=== PATIENT | female | born 1955 | race Hispanic/Latino ===

== ENCOUNTER 2023-12-22 07:01 | Observation (INO) | payer MEDICARE ==
[2023-12-16 15:40] LABS: BASOPHILS # (AUTO) 0.04 K/uL (0.00-0.20); BASOPHILS % (AUTO) 0.7 % (0.0-5.0); EOSINOPHILS # (AUTO) 0.08 K/uL (0.00-0.70); EOSINOPHILS % (AUTO) 1.4 % (0.0-8.0); HEMATOCRIT 43.8 % (36-48); IMMATURE GRANULOCYTE ABSOLUTE 0.02 K/uL (0-1); LYMPHOCYTES # (AUTO) 2.2 K/uL (1.0-4.8); LYMPHOCYTES % (AUTO) 37.9 % (21.0-51.0); MEAN CORPUSCULAR HGB CONC 33.3 g/dL (32.0-36.0); MEAN CORPUSCULAR VOLUME 89.9 fL (79-99); MONOCYTES # (AUTO) 0.4 K/uL (0.1-1.0); MONOCYTES % (AUTO) 7.3 % (3.0-13.0); NEUTROPHILS # (AUTO) 3.1 K/uL (1.8-7.7); NEUTROPHILS % (AUTO) 52.4 % (40.0-77.0); PLATELET COUNT (AUTO) 176 K/uL (130-400); RED BLOOD CELL COUNT(AUTO) 4.87 MIL/uL (4.00-5.50); WHITE BLOOD COUNT (AUTO) 5.9 K/uL (4.8-10.8)
[2023-12-16 15:57] LABS: ALBUMIN 3.7 g/dL (3.5-5.0); CREATININE 0.8 mg/dL (0.5-1.0); POTASSIUM 3.6 mmol/L (3.5-5.1)
[2023-12-16 16:03] LABS: INR 1.06 (0.85-1.15); PROTHROMBIN TIME 11.4 SEC (9.6-11.6)
[2023-12-16 16:04] LABS: PARTIAL THROMBOPLASTIN TIME 27.5 SEC (26.3-35.5)
[2023-12-16 16:10] VITALS: BP 140/72; PULSE 53; RESP 18
[2023-12-16 16:30] LABS: APPEARANCE,URINE CLEAR (CLEAR); BILIRUBIN,URINE NEGATIVE (NEGATIVE); COLOR,URINE COLORLESS (YELLOW); GLUCOSE, URINE (UA) NEGATIVE (NEGATIVE); KETONES,URINE NEGATIVE (NEGATIVE); LEUKOCYTE ESTERASE ,URINE NEGATIVE Leu/uL (NEGATIVE); NITRATE,URINE NEGATIVE (NEGATIVE); OCCULT BLOOD,URINE SMALL (NEGATIVE); PROTEIN,URINE NEGATIVE (NEGATIVE); UROBILINOGEN,URINE 0.2 mg/dL (0.2-1.0)
[2023-12-16 16:32] LABS: ADD UA MICROSCOPIC YES
[2023-12-16 16:34] LABS: WBC,URINE 0-1 /HPF (0-1)
[2023-12-22] VITALS (31 sets, daily range): BP systolic 107–158; BP diastolic 47–91; PULSE 54–75; RESP 9–21; O2SAT 94
[~2023-12-22] VITALS: Ht 157.5 cm; Wt 75.9 kg
[~2023-12-22 07:01] MED LIST: ANAS1TAB49 PO; CITA-107 PO; DEXAMETHASONE SOD PHOSPHATE 10MG/ML 1ML VIAL ONE; DOXY100T2 PO; FENTANYL CITRATE PF 50 MCG/1 ML 2ML VIAL ONE; GABA300C PO; GLYCOPYRROLATE 0.2 MG/ML 5 ML VIAL ONE; LEVO88CA4 PO; LIDOCAINE PF 100MG/5ML (2%) SYRINGE 5ML ONE; LIFI1DRO OP; MAGNESIUM PO; MIDAZOLAM HCL 1 MG/ML 2ML VIAL ONE; NAPR220T57 PO; NEOSTIGMINE METHYLSULFATE 1MG/ML IV ONE; ONDANSETRON 4MG INJ ONE; PROPOFOL 10 MG/ML 20ML VIAL IV ONE; ROCURONIUM BROMIDE 10MG/1ML 5ML VL ONE; ROPIVACAINE 0.5% 5MG/ML 30ML ONE; ROSU20TA73 PO; SUCCINYLCHOLINE CHLORIDE 20 MG/ML 10 ML VIAL ONE; TIRZ7.5P SQ; VITAMIN C PO; VITAMIN D PO; VITAMIN E PO; ZINC PO
[2023-12-22] MEDS: CEFAZOLIN SODIUM 2 GM VIAL ONE (08:01)
[2023-12-22] MEDS: 0.9%NACL 1000ML 1,000 ML IV ONE (08:01)
[2023-12-22] MEDS ORDERED: FENTANYL CITRATE PF 50 MCG/1 ML 2ML VIAL ONE (08:20)
[2023-12-22] MEDS ORDERED: ROCURONIUM BROMIDE 10MG/1ML 5ML VL ONE (08:20)
[2023-12-22] MEDS ORDERED: ARTIFICIAL TEARS 3.5 GM OINTMENT ONE (09:01)
[2023-12-22] MEDS ORDERED: PHENYLEPHRINE HCL 10 MG/ML 1ML VIAL IV ONE (10:13)
[2023-12-22] MEDS ORDERED: POTASSIUM CHLORIDE 10% ELIXIR 20 MEQ/15 ML UDCUP PO PRN (10:30)
[2023-12-22] MEDS ORDERED: ONDANSETRON 4MG INJ IVP PRN (10:30)
[2023-12-22] MEDS ORDERED: KETOROLAC 15MG/ML VIAL (15MG/ML) IV PRN (10:30)
[2023-12-22] MEDS ORDERED: CALCIUM CARB 500MG PO PRN (10:30)
[2023-12-22] MEDS ORDERED: POTASSIUM CHLORIDE 20MEQ/100ML 100 ML IV PRN (10:30)
[2023-12-22] MEDS ORDERED: TRAMADOL HCL 50 MG TABLET PO PRN (10:30)
[2023-12-22] MEDS ORDERED: FE FUMARATE/FA/MV, MIN COMB#15 1 TAB PO PRN (10:30)
[2023-12-22] MEDS: SUGAMMADEX SODIUM 200 MG/2 ML VIAL IV ONE (11:03)
[2023-12-22] MEDS: INSULIN HUMULIN R 100 UNIT/ML 3ML SQ SCH (11:30)
[2023-12-22] MEDS: TRAMADOL HCL 50 MG TABLET ONE (13:11)
[2023-12-22] MEDS: HYDROCODONE/ACETAMINOPHEN 10/325 MG TAB ONE (13:17)
[2023-12-22] MEDS ORDERED: TIRZEPATIDE 7.5 MG SQ SCH (18:30)
[2023-12-22] MEDS: KETOROLAC 15MG/ML VIAL (15MG/ML) IV SCH (18:30)
[2023-12-22] MEDS: CEFAZOLIN SODIUM 2 GM VIAL IVPB SCH (19:00)
[2023-12-22] MEDS: DOCUSATE SODIUM 100 MG CAP PO SCH (20:05)
[2023-12-22] MEDS: MAGNESIUM OXIDE 400 MG TABLET PO SCH (20:05)
[2023-12-22] MEDS: CITALOPRAM 20 MG TABLET PO SCH (20:06)
[2023-12-22] MEDS: GABAPENTIN 300 MG CAPSULE PO SCH (20:06)
[2023-12-22] MEDS: ATORVASTATIN 40 MG TABLET PO SCH (20:08)
[2023-12-22] MEDS: 0.9%NACL 1000ML 1,000 ML IV SCH (20:09)
[2023-12-22] MEDS: ANASTROZOLE 1 MG PO SCH (20:19)
[2023-12-22] MEDS: LIFITEGRAST OP SCH (20:19)
[2023-12-22] MEDS ORDERED: NON-FORMULARY MEDICATION 1 EACH (Rosuvastatin Calcium 20 MG) PO SCH (21:00)
[2023-12-23] VITALS: BP 125/53; PULSE 48; RESP 17
[2023-12-23] MEDS: CYCLOBENZAPRINE HCL 10 MG TABLET PO PRN (00:25)
[2023-12-23] MEDS: HYDROCODONE/ACETAMINOPHEN 5/325 MG TAB PO PRN (00:32)
[2023-12-23] MEDS: CEFAZOLIN SODIUM 2 GM VIAL ONE (03:00)
[2023-12-23 04:52] LABS: HEMATOCRIT 35.5 % (36-48); MEAN CORPUSCULAR HEMOGLOBIN 29.8 pg (27.0-33.0); MEAN CORPUSCULAR HGB CONC 33.5 g/dL (32.0-36.0); RED BLOOD CELL COUNT(AUTO) 3.99 MIL/uL (4.00-5.50); RED CELL DISTRIBUTION WIDTH 13.2 % (11.0-15.5); WHITE BLOOD COUNT (AUTO) 10.2 K/uL (4.8-10.8)
[2023-12-23 05:23] LABS: CREATININE 0.7 mg/dL (0.5-1.0); POTASSIUM 3.7 mmol/L (3.5-5.1)
[2023-12-23] MEDS: LEVOTHYROXINE 88 MCG TABLET PO SCH (05:53)
[2023-12-23] MEDS: KCL 20 MEQ ERTAB PO PRN (05:53)
[2023-12-23 08:00] VITALS: BP 142/76; PULSE 54; RESP 18; O2SAT 96
[2023-12-23] MEDS: ZINC SULFATE 220 CAPSULE PO SCH (08:41)
[2023-12-23] MEDS: POLYETHYLENE GLYCOL 3350 17 GM POWD.PACK PO SCH (08:41)
[2023-12-23] MEDS: VITAMIN E 400 UNIT CAPSULE PO SCH (08:41)
[2023-12-23] MEDS: ASCORBIC ACID 500 MG TAB PO SCH (08:41)
[2023-12-23] MEDS: DOXYCYCLINE HYCLATE 100 MG TABLET PO SCH (08:41)
[2023-12-23] MEDS ORDERED: NON-FORMULARY MEDICATION 1 EACH (Levothyroxine Sodium (Levothyroxine) 88 MCG) PO SCH (09:00)
[2023-12-23 11:57] VITALS: BP 157/93; PULSE 62; RESP 18
[2023-12-23] MEDS ORDERED: ASPI-1012 PO (15:49)
[2023-12-23] MEDS ORDERED: HYDR-4060 PO (15:49)
[2023-12-23] MEDS ORDERED: DOCU-116 PO (15:49)
[2023-12-23] MEDS ORDERED: CYCL-309 PO (15:49)
[2023-12-25] MEDS ORDERED: BISACODYL 10 MG SUPP.RECT RC PRN (10:30)
== END 2023-12-23 17:25 | disposition home or self-care (01) ==
LOC: DAH 07:01 → DAHIP 07:02 → 4CH 13:50
PROVIDERS: ADMIT Student in an Organized Health Care Education/Training Program; ATTEND Student in an Organized Health Care Education/Training Program
DX: M19.011 Primary osteoarthritis, right shoulder (principal); D62 Acute posthemorrhagic anemia; G89.18 Other acute postprocedural pain; E11.9 Type 2 diabetes mellitus without complications; E03.9 Hypothyroidism, unspecified; E78.5 Hyperlipidemia, unspecified; G47.33 Obstructive sleep apnea (adult) (pediatric); Z85.3 Personal history of malignant neoplasm of breast; Z88.0 Allergy status to penicillin; Z79.899 Other long term (current) drug therapy
CPT/HCPCS: 82040; 80048 ×2; 85025; 85610; 85730; 87086; 84134; 86140; 81001; 36415 ×2; 93005; 87641; 23472; 64415; 96365; 96375; 82948 ×6; 73020; 73030; 97161; 97116 ×3; 97530 ×4; 96376; 85027; G0378 ×26; A4663; J7030 ×2; A4565; C1776; J3010 ×2; J1100; J0330; J3490 ×3; J2001; J2250; J2704; J2405; J2710; J2795; J1885 ×2; J2371; J0690 ×3; G0168; A4930 ×2; C1713; A6254; A5120; A4215; A4223; A4222; A4221; A4600

== ENCOUNTER 2025-02-12 08:21 | Observation (INO) | payer MEDICARE ==
[2025-02-08 11:38] LABS: IMMATURE GRANULOCYTE ABSOLUTE 0.01 K/uL (0-1); NUCLEATED RED BLOOD CELLS 0.0 % (0.0-0.19); PLATELET COUNT (AUTO) 163 K/uL (130-400); RED BLOOD CELL COUNT(AUTO) 4.81 MIL/uL (4.00-5.50); RED CELL DISTRIBUTION WIDTH 13.7 % (11.0-15.5); WHITE BLOOD COUNT (AUTO) 6.3 K/uL (4.8-10.8)
[2025-02-08 11:52] LABS: CREATININE 0.8 mg/dL (0.5-1.0); GLOMERULAR FILTR. RATE CALC 79 mL/min (>90); GLUCOSE,RANDOM 94 mg/dL (70-105); SODIUM SERUM 143 mmol/L (136-145); UREA NITROGEN, BLOOD 15 mg/dL (7-18)
[2025-02-08 12:00] LABS: INR 1.05 (0.85-1.15)
[2025-02-08 12:07] VITALS: BP 156/62; PULSE 50; RESP 14; TEMP 98.3
--- NOTE | 2025-02-08 12:30 | NUR ---
RE: IS INITIAL IS INITIAL DONE BY RT MAGED DURING PREOP.
[2025-02-12] VITALS (27 sets, daily range): BP systolic 99–137; BP diastolic 48–72; PULSE 51–79; RESP 12–20; TEMP 97.5–98.2; O2SAT 93–98
[~2025-02-12] VITALS: Ht 157.5 cm; Wt 73.0 kg
[~2025-02-12 08:21] MED LIST changes: -ANAS1TAB49 PO; +ASPI-1443 PO; +CELE200C3 PO; -DEXAMETHASONE SOD PHOSPHATE 10MG/ML 1ML VIAL ONE; +DONE5TAB33 PO; +DOXY100C5 PO; -DOXY100T2 PO; -FENTANYL CITRATE PF 50 MCG/1 ML 2ML VIAL ONE; -GLYCOPYRROLATE 0.2 MG/ML 5 ML VIAL ONE; +LEVO75TA10 PO; -LEVO88CA4 PO; -LIDOCAINE PF 100MG/5ML (2%) SYRINGE 5ML ONE; -LIFI1DRO OP; +LIFI1DRO5 OU; -MAGNESIUM PO; -MIDAZOLAM HCL 1 MG/ML 2ML VIAL ONE; -NAPR220T57 PO; -NEOSTIGMINE METHYLSULFATE 1MG/ML IV ONE; -ONDANSETRON 4MG INJ ONE; -PROPOFOL 10 MG/ML 20ML VIAL IV ONE; -ROCURONIUM BROMIDE 10MG/1ML 5ML VL ONE; -ROPIVACAINE 0.5% 5MG/ML 30ML ONE; -ROSU20TA73 PO; +ROSU20TA98 PO; -SUCCINYLCHOLINE CHLORIDE 20 MG/ML 10 ML VIAL ONE; -VITAMIN C PO; -VITAMIN D PO; -VITAMIN E PO; -ZINC PO
[2025-02-12] MEDS ORDERED: LIDOCAINE PF 100MG/5ML (2%) SYRINGE 5ML ONE (10:35)
[2025-02-12] MEDS ORDERED: MIDAZOLAM HCL 1 MG/ML 2ML VIAL ONE (10:36)
[2025-02-12] MEDS ORDERED: GLYCOPYRROLATE 0.2 MG/ML 5 ML VIAL ONE (10:59)
[2025-02-12] MEDS ORDERED: HYDROcodone/APAP 5/325 1 TAB TABLET PO PRN (11:30)
[2025-02-12] MEDS ORDERED: PoTASSium chl 10% ELIXIR 20MEQ 20 MEQ/15 ML UDCUP PO PRN (11:30)
[2025-02-12] MEDS ORDERED: FERROUS FUMARATE 324 MG TABLET PO PRN (11:30)
[2025-02-12] MEDS ORDERED: PoTASSium chloRIDE 20MEQ ER 20 MEQ ERTAB PO PRN (11:30)
[2025-02-12] MEDS ORDERED: CALCIUM CARB 500MG PO PRN (11:30)
[2025-02-12] MEDS ORDERED: TRANEXAMIC ACID 1000MG/10ML ONE (11:32)
--- NOTE | 2025-02-12 11:43 | DS ---
Discharge Summary Hospital Course Summary: The patient was admitted to the hospital postoperatively on 02/12/2025 after undergoing right total hip arthroplasty. They did well with routine postoperative pain control. They worked well with physical therapy. They developed some acute blood loss anemia but remained asymptomatic. The hospital course was otherwise uncomplicated. They were subsequently able to be discharged on postoperative day [] once discharge arrangements were made with intermediate facility. Plating Foreman(s): None Procedure(s): Right total hip arthroplasty, 02/12/2025 Assessment/Plan: ASSESSMENT: Status post right total hip arthroplasty doing well Asymptomatic acute blood loss anemia PLAN: See discharge instructions Home Medications: Reported Medications Doxycycline Hyclate (Doxycycline Hyclate) 100 Mg Capsule, 100 MG PO DAILY, CAP 02/08/25 Aspirin (Aspirin EC) 81 Mg Tablet.dr, 81 MG PO DAILY, TAB 02/08/25 Donepezil HCl (Donepezil HCl) 5 Mg Tablet, 5 MG PO HS, TAB 02/08/25 Celecoxib (Celebrex) 200 Mg Capsule, 200 MG PO AD PRN for PAIN, CAP 02/08/25 Levothyroxine Sodium (Levothyroxine Sodium) 75 Mcg Tablet, 75 MCG PO ACBKFST, TAB 02/08/25 Citalopram Hydrobromide (Citalopram HBr) 20 Mg Tablet, 20 MG PO HS, TAB 12/16/23 Gabapentin (Neurontin) 300 Mg Capsule, 300 MG PO HS, CAP 12/16/23 Lifitegrast (Xiidra) 5 % Droperette, 1 DROP OU BID, DROP 12/16/23 Tirzepatide (Mounjaro) 7.5 Mg/0.5 Ml Pen.injctr, 7.5 MG SQ QWEEK Wednesday12/16/23 Rosuvastatin Calcium (Rosuvastatin Calcium) 20 Mg Tablet, 20 MG PO HS, TAB 12/16/23 Discontinued Reported Medications [Zinc] No Conflict Check, 1 TAB PO AM 12/16/23 [Vitamin C] No Conflict Check, 1 TAB PO AM 12/16/23 [Vitamin E] No Conflict Check, 1 TAB PO AM 12/16/23 [Vitamin D] No Conflict Check, 1 TAB PO AM 12/16/23 [Magnesium] No Conflict Check, 400 MG PO HS 12/16/23 Doxycycline Hyclate (Doxycycline Hyclate) 100 Mg Tablet, 100 MG PO AM, TAB 12/16/23 Levothyroxine Sodium (Levothyroxine) 88 Mcg Capsule, 88 MCG PO AM, CAP 12/16/23 Anastrozole (Arimidex) 1 Mg Tab, 1 MG PO HS, TAB 12/16/23 Discontinued Scripts Aspirin (ASPIRIN) 325 Mg Tablet, 325 MG PO DAILY for 30 Days, #30 TAB 0 Refills Prov:CHE WALTERS MD 12/23/23 Docusate Sodium (Colace) 100 Mg Capsule, 100 MG PO BID for 30 Days, #60 CAP 0 Refills Prov:CHE WALTERS MD 12/23/23 Hydrocodone/Acetaminophen (Hydrocodon-Acetaminophen 5-325) 5 Mg-325 Mg Tablet, 1-2 TAB PO Q4H PRN for MODERATE/SEVERE PAIN LEVEL, #56 TAB 0 Refills Prov:CHE WALTERS MD 12/23/23 Cyclobenzaprine HCl (Cyclobenzaprine HCl) 10 Mg Tablet, 5 MG PO Q8H PRN for MUSCLE SPASMS, #45 TAB 0 Refills Prov:CHE WALTERS MD 12/23/23 CHE WALTERS MD Feb 12, 2025 11:43
--- NOTE | 2025-02-12 13:50 | OP ---
Operative Note: DATE OF PROCEDURE: 02/12/25 SURGEON: CHE WALTERS MD PROGRAM CONTROL ANALYST: Sushant Salazar ANESTHESIA: General and fascia iliaca block ANESTHESIOLOGIST/MEDIA PLANNER / BUYER: Meeta Early CRNA PREOPERATIVE DIAGNOSIS: Right hip osteoarthritis POSTOPERATIVE DIAGNOSIS: Right hip osteoarthritis PROCEDURE: Right total hip arthroplasty ESTIMATED BLOOD LOSS: 300 cc INDICATIONS: 69-year-old female with right hip osteoarthritis failing conservative management. After discussion of the risks, benefits, and alternatives, the patient voluntarily agreed to undergo the aforementioned procedure. IMPLANTS: Early and Nephew 50 mm R3 acetabular component with 6.5 mm screws x2 and central hole cover, 0 degree XLPE polyethylene liner, size three standard offset anthology stem with a 36 mm Oxinium -3 head DESCRIPTION OF PROCEDURE: Patient was properly identified in the preoperative holding area. Surgical site marking was verified and surgery consent reviewed. The patient was then taken to the operating room and placed in supine position on the OR table. After induction of general anesthesia, preoperative antibiotics were given. The patient was then transitioned in the lateral decubitus position with the right side up. All bony prominences were well-padded. Right lower extremity was then prepped and draped in the usual sterile fashion. Surgical time out was done verifying correct surgery, side, site, and location to be performed. We then began the procedure by making approximately 15 cm long incision centered over the greater trochanter. Here we came sharply through skin down to the fascia. Hemostasis was then achieved using Bovie electrocautery. We then incised fascia in line with the skin incision and finger split the tensor muscle proximally. We then placed our Charnley retractor. At this point we identified the vastus ridge and began elevating the full-thickness soft tissue flap off of the vastus ridge, splitting the vastus lateralis and gluteus muscles as necessary. We then proceeded to externally rotate the femur while making this flap. We resected part of the anterior capsule. The femoral head and neck was then delivered into view. We then dislocated the hip and performed a femoral neck osteotomy approximately half a fingerbreadth proximal to the lesser trochanter. We then placed our retractors around the superior and anterior portion of the acetabulum and began to remove the labrum circumferentially. We then began reaming the acetabulum where we reamed up to a size 49 ensuring appropriate anteversion and abduction. We then proceeded to trial with the size 49 acetabular component and this appeared to sit well. We opened our size 50 acetabular component and after irrigating out the wound malleted this into place. It appeared to have good press-fit however we elected to place two of the 6.5 mm screws. We drilled and filled the screws in standard fashion in the posterior superior portion of the cup. We then placed the manhole cover on the center of the cup. The wound was thoroughly irrigated out further and we placed the acetabular liner and impacted this in place in standard fashion. We then proceeded to reposition our retractors to elevate the proximal femur out of the wound. We then used the box chisel and canal finder to began preparing the femoral side and sequentially broached up to the aforementioned size stem. Once we felt we had good fit, fill, and control of the femur with the stem in place we then used our trial head component and reduce the hip. Clinically the leg felt longer than the contralateral. Under fluoroscopy we appreciated that we were 3-4 mm long, so we dislocated the hip and reach trialed using the minus three head. Upon reduction, we had appropriate soft tissue tensioning, limb length and stable range of motion. We therefore dislocated the hip once more removed our trial components thoroughly irrigated the out the wound and placed our final components in standard fashion. The hip was then reduced with the final components in place. It was found to be stable through range of motion with appropriate soft tissue tensioning and appropriate limb length. At this point we placed a bump under the knee and the foot on the male with a stack of towels to allow for internal rotation. We repaired the abductors back to the greater trochanter using #5 Ethibond. We then repaired the rent in the vastus lateralis and gluteus muscles using #1 Vicryl in a running fashion. We removed our Charnley retractor and began to repair the IT band using #1 Vicryl in interrupted [id number] fashion. At this point we began to close her subcutaneous tissue using 2-0 Vicryl. Running 3-0 Monocryl in subcuticular fashion with Dermabond placed over this for the skin. Island barrier dressing was then applied. Patient was returned to supine position, awakened from anesthesia, and taken to the recovery room in stable condition. CHE WALTERS MD Feb 12, 2025 13:50
[2025-02-12] MEDS: SUGAMMADEX SODIUM 200 MG/2 ML VIAL IV ONE (15:20)
[2025-02-12] MEDS: 0.9%NACL 1000ML 1,000 ML IV ONE (15:20)
--- NOTE | 2025-02-12 15:27 | HMCIMG ---
CLINICAL INFORMATION Hip pain COMPARISON None. TECHNIQUE Single AP pelvis, single additional view of the left hip FINDINGS Bones: No acute fracture. No destructive osseous abnormality. Alignment: Normal. Joints: Total right hip arthroplasty. Moderate left hip osteoarthritis. Soft Tissues: Normal. IMPRESSION Moderate left hip osteoarthritis. Total right hip arthroplasty. /[place]
[2025-02-12] MEDS: CYCLOBENZAPRINE HCL 10 MG TABLET PO PRN (15:44)
[2025-02-12] MEDS: 0.9%NACL 1000ML 1,000 ML IV SCH (15:44)
[2025-02-12] MEDS: GABAPENTIN 300 MG CAPSULE PO SCH (20:50)
[2025-02-12] MEDS: LIFITEGRAST OU SCH (20:51)
[2025-02-13] VITALS (9 sets, daily range): BP systolic 93–152; BP diastolic 42–121; PULSE 50–101; RESP 16–20; TEMP 98–98.9; O2SAT 90–98
[2025-02-13] MEDS: HYDROcodone/APAP 5/325 1 TAB TABLET PO PRN ×2 (06:14→12:57)
[2025-02-13 06:20] LABS: NUCLEATED RED BLOOD CELLS 0.0 % (0.0-0.19); PLATELET COUNT (AUTO) 136.0 K/uL (130-400); RED BLOOD CELL COUNT(AUTO) 3.77 MIL/uL (4.00-5.50); RED CELL DISTRIBUTION WIDTH 13.7 % (11.0-15.5); WHITE BLOOD COUNT (AUTO) 10.7 K/uL (4.8-10.8)
[2025-02-13 06:26] LABS: CREATININE 0.8 mg/dL (0.5-1.0); GLOMERULAR FILTR. RATE CALC 79.0 mL/min (>90); GLUCOSE,RANDOM 117.0 mg/dL (70-105); SODIUM SERUM 139.0 mmol/L (136-145); UREA NITROGEN, BLOOD 16.0 mg/dL (7-18)
--- NOTE | 2025-02-13 08:15 | PN ---
Ortho postop day one. This morning the patient is awake alert and oriented. Seated out of bed enjoying her breakfast. She is reporting much better pain control and states that she is not feeling too much pain at this time. Vital signs have remained stable. Afebrile. Laboratory results reviewed. Noted to have a drop in hemoglobin and hematocrit as expected. Patient is currently asymptomatic we will continue to observe and address per protocol as necessary. Operative findings discussed with the patient. Voiding on her own and passing gas. Reinforced incentive spirometry. Patient dressing is intact. The gastrocnemius a soft nontender. Negative Homans. Pending physical therapy this morning. Patient is trying to be considered for [facility] rehab but I have instructed the patient that it is not likely that she will be approved since she does not have any other series comorbidities. She is going to discuss with her and we will likely agreed to therapy in the home setting. Assessment: Status post right total hip arthroplasty Acute postoperative blood loss anemia. Plan: Continue Dr. Hay protocol and discharge planning. Acute postoperative blood loss anemia addressed with the protocol Vitals/Labs Vital Signs Date Time Temp Pulse Resp B/P (MAP) Pulse Ox O2 Delivery O2 Flow Rate FiO2 02/13/25 03:20 98.2 50 16 99/51 98 CPAP 02/12/25 20:00 0 21 Laboratory Tests 02/13/25 06:07 Medications Current Medications Cefazolin Sodium 2 gm STK-MED ONCE .ROUTE; Start 02/12/25 at 09:05; Stop 02/12/25 at 09:06; Status DC Sodium Chloride 1,000 ml @ As Directed STK-MED ONCE IV; Start 02/12/25 at 09:05; Stop 02/12/25 at 09:06; Status DC Lidocaine HCl 100 mg STK-MED ONCE .ROUTE; Start 02/12/25 at 10:35; Stop 02/12/25 at 10:36; Status DC Midazolam HCl 2 mg STK-MED ONCE .ROUTE; Start 02/12/25 at 10:36; Stop 02/12/25 at 10:36; Status DC Propofol 200 mg STK-MED ONCE IV; Start 02/12/25 at 10:36; Stop 02/12/25 at 10:36; Status DC Rocuronium [place] 50 mg STK-MED ONCE .ROUTE; Start 02/12/25 at 10:36; Stop 02/12/25 at 10:37; Status DC Fentanyl Citrate 100 mcg STK-MED ONCE .ROUTE; Start 02/12/25 at 10:36; Stop 02/12/25 at 10:37; Status DC Acetaminophen 100 ml @ As Directed STK-MED ONCE .ROUTE; Start 02/12/25 at 10:39; Stop 02/12/25 at 10:40; Status DC Glycopyrrolate 1 mg STK-MED ONCE .ROUTE; Start 02/12/25 at 10:59; Stop 02/12/25 at 10:59; Status DC Ephedrine Sulfate 50 mg STK-MED ONCE .ROUTE; Start 02/12/25 at 11:20; Stop 02/12/25 at 11:20; Status DC Tranexamic Acid 1,000 mg STK-MED ONCE .ROUTE; Start 02/12/25 at 11:32; Stop 02/12/25 at 11:32; Status DC Sodium Chloride 1,000 ml @ 100 mls/hr Q10H IV Last administered on 02/12/25at 20:52; Start 02/12/25 at 11:30; Stop 02/13/25 at 11:29 Polyethylene Glycol 17 gm DAILY PO; Start 02/13/25 at 09:00; Stop 03/15/25 at 08:59 Bisacodyl 10 mg DAILY PRN RC; Start 02/15/25 at 11:30; Stop 03/17/25 at 11:29 Ketorolac Tromethamine 15 mg Q6H PRN IV; Start 02/13/25 at 11:30; Stop 02/18/25 at 11:29 Ferrous Fumarate 324 mg DAILY PRN PO; Start 02/12/25 at 11:30; Stop 03/14/25 at 11:29 Calcium Carbonate 500 mg Q12H PRN PO; Start 02/12/25 at 11:30; Stop 03/14/25 at 11:29 Ondansetron HCl 4 mg Q6H PRN IVP; Start 02/12/25 at 11:30; Stop 03/14/25 at 11:29 Cefazolin Sodium 2 gm Q8H IVPB Last administered on 02/12/25at 20:51; Start 02/12/25 at 12:30; Stop 02/12/25 at 20:31; Status DC Gabapentin 100 mg TID PO; Start 02/12/25 at 14:00; Stop 02/12/25 at 11:51; Status DC Cyclobenzaprine HCl 5 mg Q8H PRN PO Last administered on 02/12/25at 15:44; Start 02/12/25 at 11:30; Stop 03/14/25 at 11:29 Docusate Sodium 100 mg BID PO Last administered on 02/12/25at 20:51; Start 02/12/25 at 21:00; Stop 03/14/25 at 20:59 Ketorolac Tromethamine 15 mg Q8H IV Last administered on 02/13/25at 04:22; Start 02/12/25 at 11:30; Stop 02/13/25 at 03:31; Status DC Aspirin 325 mg DAILY PO; Start 02/13/25 at 09:00; Stop 03/15/25 at 08:59 Potassium Chloride 100 ml @ 100 mls/hr AD PRN IV; Start 02/12/25 at 11:30; Stop 03/14/25 at 11:29 Potassium Chloride 20 meq AD PRN PO; Start 02/12/25 at 11:30; Stop 03/14/25 at 11:29 Potassium Chloride 20 meq AD PRN PO; Start 02/12/25 at 11:30; Stop 03/14/25 at 11:29 Acetaminophen/ Hydrocodone Bitart Q4H PRN PO; Start 02/12/25 at 11:30; Stop 02/12/25 at 11:54; Status DC Citalopram Hydrobromide 20 mg HS PO Last administered on 02/12/25at 20:50; Start 02/12/25 at 21:00; Stop 03/14/25 at 20:59 Donepezil HCl 5 mg HS PO Last administered on 02/12/25at 20:50; Start 02/12/25 at 21:00; Stop 03/14/25 at 20:59 Gabapentin 300 mg HS PO Last administered on 02/12/25at 20:50; Start 02/12/25 at 21:00; Stop 03/14/25 at 20:59 Levothyroxine Sodium 75 mcg SYN PO Last administered on 02/13/25at 06:06; Start 02/13/25 at 06:30; Stop 03/15/25 at 06:29 Miscellaneous Medication 100 mg DAILY PO; Start 02/13/25 at 09:00; Stop 02/12/25 at 11:59; Status DC Home Med Lifitegrast 5% (Xiidra... BID OU; Start 02/12/25 at 21:00; Stop 03/14/25 at 20:59 Atorvastatin Calcium 80 mg HS PO Last administered on 02/12/25at 20:50; Start 02/12/25 at 21:00; Stop 03/14/25 at 20:59 Home Med 7.5 each QWEEK SQ; Start 02/19/25 at 09:00; Stop 03/21/25 at 08:59 Dexamethasone Sodium Phosphate 4 mg STK-MED ONCE .ROUTE; Start 02/12/25 at 11:41; Stop 02/12/25 at 11:41; Status DC Ondansetron HCl 4 mg STK-MED ONCE .ROUTE; Start 02/12/25 at 11:41; Stop 02/12/25 at 11:41; Status DC Acetaminophen/ Hydrocodone Bitart 1 tab Q6H PRN PO; Start 02/12/25 at 12:00; Stop 02/17/25 at 11:59 Acetaminophen/ Hydrocodone Bitart 2 tab Q6H PRN PO Last administered on 02/13/25at 06:14; Start 02/12/25 at 12:00; Stop 02/17/25 at 11:59 Rocuronium [place] 50 mg STK-MED ONCE .ROUTE; Start 02/12/25 at 11:54; Stop 02/12/25 at 11:55; Status DC Fentanyl Citrate 100 mcg STK-MED ONCE .ROUTE; Start 02/12/25 at 12:02; Stop 02/12/25 at 12:03; Status DC Cefazolin Sodium 2 gm STK-MED ONCE IVPB Last administered on 02/12/25at 11:30; Start 02/12/25 at 11:30; Stop 02/12/25 at 12:26; Status DC Tranexamic Acid 1,000 mg STK-MED ONCE IV Last administered on 02/12/25at 11:41; Start 02/12/25 at 11:41; Stop 02/12/25 at 12:26; Status DC Hydromorphone HCl 1 mg STK-MED ONCE .ROUTE Last administered on 02/12/25at 14:24; Start 02/12/25 at 14:20; Stop 02/12/25 at 14:21; Status DC TENA DUMAS NP Feb 13, 2025 08:15
[2025-02-13] MEDS: ASPIRIN 325MG EC TAB PO SCH (08:55)
[2025-02-13] MEDS ORDERED: DOXYCYCLINE HYCLATE 100 MG PO SCH (09:00)
--- NOTE | 2025-02-13 09:30 | NUR ---
[facility] CM MET WITH PT THIS MORNING, INITIAL ASSESSMENT DONE. PATIENT IS INDEPENDENT PRIOR TO SURGERY, LIVES AT HOME WITH HER , DAUGHTER LIVES WITH PT AND HER AT HOME. PATIENT HAS A CURRENT WORKING STANDARD WALKER, WHEELCHAIR, BEDSIDE COMMODE, RAISED CHAIR FOR TOILET, CPAP, GLUCOMETER, TAKES [employer] FOR DM. DENIES ANY OTHER EQUIPMENT/SERVICES. FEELS SAFE TO GO BACK HOME, STILL DRIVE, SPOUSE AND DAUGHTER ABLE TO ASSIST WITH TRANSPORTATION AND NEEDS NECESSARY. DISCUSSED HOME W/HH VS SHORT TERM REHAB AT [facility]. PT VERBALIZED SHE WOULD LIKE TO GO TO [facility], INFORMED PT THIS CM CANNOT GUARANTEE THAT IT WILL BE APPROVED D/T PATIENT'S INSURANCE COVERAGE. PT VERBALIZED SHE WOULD STILL LIKE TO TRY STR, CM DISCUSSED POSSIBLE PLAN B IN CASE PT GET DENIED, PT AGREEABLE FOR HOME W/ HOME HEALTH ONLY, DECLINED SNF PLACEMENT. CONSENT SIGNED ANDREW FOR #1 STR, #2 ANY IN NETWORK HOME HEALTH. [facility] STR ONCE APPROVED. VERIFIED PT'S SS# [id number], REGISTRATION UPDATED VIA SECURE FAX. CM TO CONTINUE TO FOLLOW UP. Addendum: 02/13/25 at 1806 by RADHA DURAN LVN Amended: Links added.
[2025-02-14 03:02] VITALS: BP 100/42; PULSE 55; RESP 16; TEMP 98.8
[2025-02-14 08:00] VITALS: BP 110/99; PULSE 52; RESP 21; TEMP 99; O2SAT 96
[2025-02-14 11:41] VITALS: BP 110/55; PULSE 56; RESP 19; TEMP 97.6
--- NOTE | 2025-02-14 15:45 | PN ---
Ortho postop day two Patient reports she is doing well and ambulating with physical therapy. States pain present but controlled. Reports hypotension with pain medication administration. Passing gas but no bowel movement yet. The patient was attempting to void at the time of my visit. Vital signs stable but mild hypotension present, afebrile No acute distress alert and oriented x3 Nonlabored breathing Right lower extremity -no significant edema distally Ambulated with physical therapy yesterday 20/50 feet in the a.m./p.m. Discharge planning has transitioned from [facility] to [facility]. Assessment: Postop day two status post right total hip arthroplasty Acute blood loss anemia, asymptomatic Plan: Discussed with the patient we could go ahead and administer lactulose today due to her abdominal discomfort. Continue with my routine postop total hip care Continue with discharge planning. Wean to lower dose of pain medication if possible due to hypotension Vitals/Labs Vital Signs Date Time Temp Pulse Resp B/P (MAP) Pulse Ox O2 Delivery O2 Flow Rate FiO2 02/14/25 11:41 97.5 56 19 110/55 97 Room Air 02/13/25 20:00 0 21 Medications Current Medications Cefazolin Sodium 2 gm STK-MED ONCE .ROUTE; Start 02/12/25 at 09:05; Stop 02/12/25 at 09:06; Status DC Sodium Chloride 1,000 ml @ As Directed STK-MED ONCE IV; Start 02/12/25 at 09:05; Stop 02/12/25 at 09:06; Status DC Lidocaine HCl 100 mg STK-MED ONCE .ROUTE; Start 02/12/25 at 10:35; Stop 02/12/25 at 10:36; Status DC Midazolam HCl 2 mg STK-MED ONCE .ROUTE; Start 02/12/25 at 10:36; Stop 02/12/25 at 10:36; Status DC Propofol 200 mg STK-MED ONCE IV; Start 02/12/25 at 10:36; Stop 02/12/25 at 10:36; Status DC Rocuronium [place] 50 mg STK-MED ONCE .ROUTE; Start 02/12/25 at 10:36; Stop 02/12/25 at 10:37; Status DC Fentanyl Citrate 100 mcg STK-MED ONCE .ROUTE; Start 02/12/25 at 10:36; Stop 02/12/25 at 10:37; Status DC Acetaminophen 100 ml @ As Directed STK-MED ONCE .ROUTE; Start 02/12/25 at 10:39; Stop 02/12/25 at 10:40; Status DC Glycopyrrolate 1 mg STK-MED ONCE .ROUTE; Start 02/12/25 at 10:59; Stop 02/12/25 at 10:59; Status DC Ephedrine Sulfate 50 mg STK-MED ONCE .ROUTE; Start 02/12/25 at 11:20; Stop 02/12/25 at 11:20; Status DC Tranexamic Acid 1,000 mg STK-MED ONCE .ROUTE; Start 02/12/25 at 11:32; Stop 02/12/25 at 11:32; Status DC Sodium Chloride 1,000 ml @ 100 mls/hr Q10H IV Last administered on 02/12/25at 20:52; Start 02/12/25 at 11:30; Stop 02/13/25 at 11:29; Status DC Polyethylene Glycol 17 gm DAILY PO Last administered on 02/14/25at 08:37; Start 02/13/25 at 09:00; Stop 03/15/25 at 08:59 Bisacodyl 10 mg DAILY PRN RC; Start 02/15/25 at 11:30; Stop 03/17/25 at 11:29 Ketorolac Tromethamine 15 mg Q6H PRN IV Last administered on 02/14/25at 12:47; Start 02/13/25 at 11:30; Stop 02/18/25 at 11:29 Ferrous Fumarate 324 mg DAILY PRN PO; Start 02/12/25 at 11:30; Stop 03/14/25 at 11:29 Calcium Carbonate 500 mg Q12H PRN PO; Start 02/12/25 at 11:30; Stop 03/14/25 at 11:29 Ondansetron HCl 4 mg Q6H PRN IVP; Start 02/12/25 at 11:30; Stop 03/14/25 at 11:29 Cefazolin Sodium 2 gm Q8H IVPB Last administered on 02/12/25at 20:51; Start 02/12/25 at 12:30; Stop 02/12/25 at 20:31; Status DC Gabapentin 100 mg TID PO; Start 02/12/25 at 14:00; Stop 02/12/25 at 11:51; Status DC Cyclobenzaprine HCl 5 mg Q8H PRN PO Last administered on 02/13/25at 12:57; Start 02/12/25 at 11:30; Stop 03/14/25 at 11:29 Docusate Sodium 100 mg BID PO Last administered on 02/14/25at 08:37; Start 02/12/25 at 21:00; Stop 03/14/25 at 20:59 Ketorolac Tromethamine 15 mg Q8H IV Last administered on 02/13/25at 04:22; Start 02/12/25 at 11:30; Stop 02/13/25 at 03:31; Status DC Aspirin 325 mg DAILY PO Last administered on 02/14/25at 08:37; Start 02/13/25 at 09:00; Stop 03/15/25 at 08:59 Potassium Chloride 100 ml @ 100 mls/hr AD PRN IV; Start 02/12/25 at 11:30; Stop 03/14/25 at 11:29 Potassium Chloride 20 meq AD PRN PO; Start 02/12/25 at 11:30; Stop 03/14/25 at 11:29 Potassium Chloride 20 meq AD PRN PO; Start 02/12/25 at 11:30; Stop 03/14/25 at 11:29 Acetaminophen/ Hydrocodone Bitart Q4H PRN PO; Start 02/12/25 at 11:30; Stop 02/12/25 at 11:54; Status DC Citalopram Hydrobromide 20 mg HS PO Last administered on 02/13/25at 20:17; Start 02/12/25 at 21:00; Stop 03/14/25 at 20:59 Donepezil HCl 5 mg HS PO Last administered on 02/13/25at 20:18; Start 02/12/25 at 21:00; Stop 03/14/25 at 20:59 Gabapentin 300 mg HS PO Last administered on 02/13/25at 20:17; Start 02/12/25 at 21:00; Stop 03/14/25 at 20:59 Levothyroxine Sodium 75 mcg SYN PO Last administered on 02/14/25at 06:23; Start 02/13/25 at 06:30; Stop 03/15/25 at 06:29 Miscellaneous Medication 100 mg DAILY PO; Start 02/13/25 at 09:00; Stop 02/12/25 at 11:59; Status DC Home Med Lifitegrast 5% (Xiidra... BID OU Last administered on 02/14/25at 08:36; Start 02/12/25 at 21:00; Stop 03/14/25 at 20:59 Atorvastatin Calcium 80 mg HS PO Last administered on 02/13/25at 20:17; Start 02/12/25 at 21:00; Stop 03/14/25 at 20:59 Home Med 7.5 each QWEEK SQ; Start 02/19/25 at 09:00; Stop 03/21/25 at 08:59 Dexamethasone Sodium Phosphate 4 mg STK-MED ONCE .ROUTE; Start 02/12/25 at 11:41; Stop 02/12/25 at 11:41; Status DC Ondansetron HCl 4 mg STK-MED ONCE .ROUTE; Start 02/12/25 at 11:41; Stop 02/12/25 at 11:41; Status DC Acetaminophen/ Hydrocodone Bitart 1 tab Q6H PRN PO Last administered on 02/14/25at 06:23; Start 02/12/25 at 12:00; Stop 02/17/25 at 11:59 Acetaminophen/ Hydrocodone Bitart 2 tab Q6H PRN PO Last administered on 02/13/25at 06:14; Start 02/12/25 at 12:00; Stop 02/17/25 at 11:59 Rocuronium [place] 50 mg STK-MED ONCE .ROUTE; Start 02/12/25 at 11:54; Stop 02/12/25 at 11:55; Status DC Fentanyl Citrate 100 mcg STK-MED ONCE .ROUTE; Start 02/12/25 at 12:02; Stop 02/12/25 at 12:03; Status DC Cefazolin Sodium 2 gm STK-MED ONCE IVPB Last administered on 02/12/25at 11:30; Start 02/12/25 at 11:30; Stop 02/12/25 at 12:26; Status DC Tranexamic Acid 1,000 mg STK-MED ONCE IV Last administered on 02/12/25at 11:41; Start 02/12/25 at 11:41; Stop 02/12/25 at 12:26; Status DC Hydromorphone HCl 1 mg STK-MED ONCE .ROUTE Last administered on 02/12/25at 14:24; Start 02/12/25 at 14:20; Stop 02/12/25 at 14:21; Status DC CHE WALTERS MD Feb 14, 2025 15:45
[2025-02-14 16:00] VITALS: BP 106/52; PULSE 59; RESP 18; TEMP 98.7
[2025-02-14] MEDS: LACTULOSE 20 GM/30 ML UDCUP PO ONE (19:47)
[2025-02-14 20:00] VITALS: BP 122/54; PULSE 64; RESP 20; TEMP 99.6; O2SAT 100
[2025-02-15] VITALS: BP 123/55; PULSE 63; RESP 20; TEMP 98.5
[2025-02-15 04:00] VITALS: BP 100/51; PULSE 58; RESP 20; TEMP 98.1
[2025-02-15 08:00] VITALS: BP 117/55; PULSE 52; RESP 18; TEMP 98.4; O2SAT 99
[2025-02-15] MEDS ORDERED: DOCU-116 PO (11:07)
[2025-02-15] MEDS ORDERED: HYDR-4060 PO (11:07)
[2025-02-15] MEDS ORDERED: CYCL-309 PO (11:07)
[2025-02-15] MEDS ORDERED: ASPI-891 PO (11:07)
[2025-02-15 12:00] VITALS: BP 115/46; PULSE 53; RESP 18; TEMP 98.2
--- NOTE | 2025-02-15 12:03 | HMCIMG ---
Intraoperative fluoroscopic assessment of the right hip INDICATION: Right hip arthroplasty COMPARISON: None available Fluoroscopy time: 11.4 seconds.. FINDINGS: 5 images demonstrate undergoing right hip arthroplasty. IMPRESSION: Details of the finding in the procedure notes
--- NOTE | 2025-02-15 14:39 | NUR ---
PATIENT IS DISCHARGED. IV TAKEN OUT WITH CATHETER INTACT. EDUCATION GIVEN TO PATIENT WELL FOLLOW UP APPOINTMENT. REPORT GIVEN TO SARAHI MOLINA AT [facility]. DRESSING REMOVED FROM PATIENT'S HIP INCISION CLEAN AND INTACT. PATIENT TAKEN TO FACILITY VIA VAN TRANSPORT.
[2025-02-19] MEDS ORDERED: TIRZEPATIDE 7.5 MG SQ SCH (09:00)
== END 2025-02-15 14:30 ==
LOC: DAH 08:21 → DAHIP 08:22 → DAH 08:22 → 4CH 15:20 → 4DH 02-14 03:54
PROVIDERS: ADMIT Student in an Organized Health Care Education/Training Program; ATTEND Student in an Organized Health Care Education/Training Program
DX: M16.11 Unilateral primary osteoarthritis, right hip (principal); M25.551 Pain in right hip; D62 Acute posthemorrhagic anemia; E11.9 Type 2 diabetes mellitus without complications; E78.5 Hyperlipidemia, unspecified; Z98.890 Other specified postprocedural states; Z79.899 Other long term (current) drug therapy
CPT/HCPCS: 82040; 80048 ×2; 85025; 85610; 85730; 84134; 86140; 36415 ×3; 87641; 27130; 96376 ×4; 96365; 96366 ×2; 96375; 64447; 86850; 86900; 86901; 82948 ×4; 73503; 73521; 97161; 97116 ×6; 85027; 97530 ×3; A6260; G0378 ×75; A4663; C1776; J3010 ×2; J1171; J3490 ×6; J7030; J2003; J2250; J2704; J2405; J1100; J1885 ×7; J0690 ×3; A4649 ×2; A4930; A6255; A5120; A4215; A4223 ×2; A4213; A4222; A4221; A4216